=== PATIENT | male | born 1965 | race Two or more races ===

== ENCOUNTER 2021-06-08 19:40 | Inpatient (IN) | payer MEDICAID, OTHER ==
[~2021-06-08] VITALS: Ht 170.2 cm; Wt 183.0 kg
[2021-06-08] MEDS ORDERED: SODIUM CHLORIDE 0.9% 1,000 ML IV ONE (23:15)
[2021-06-08 23:41] LABS: Basophils # (auto) 0 10 ^3/uL (0-0.2); Eosinophils # (auto) 0 10 ^3/uL (0-0.8); Hemoglobin 12.7 g/dL (13.5-17.5); Lymphocytes # (auto) 0.5 10 ^3/uL (0.4-5.4); Monocytes # (auto) 0.4 10 ^3/uL (0-1.3); White Blood Cell 3.3 10^3/uL (4.4-10.8)
[2021-06-08 23:43] LABS: Basophils % (auto) 0.4 % (0.0-2.0); Hematocrit 36.1 % (41.0-53.0); Lymphocytes % (auto) 15.7 % (10.0-50.0); Mean Corpuscular Hgb Conc. 35.2 g/dL (32.0-36.0); Mean Corpuscular Volume 93.6 fL (80.0-100.0); Neutrophils # (auto) 2.4 10 ^3/uL (1.6-8.6); Neutrophils % (auto) 71.9 % (37.0-80.0); Nucleated Red Blood Cells % 0.1 %; Red Blood Cells 3.86 10^6/uL (4.5-5.90); Red Cell Distribution Width 14.7 % (11.8-14.3)
[2021-06-09 00:03] LABS: Albumin 3.5 g/dL (3.4-5.0); BUN/Creatinine Ratio 7.8; Calcium 8.3 mg/dL (8.5-10.1); Potassium 3.5 mmol/L (3.5-5.1)
[2021-06-09 00:05] LABS: Lactic Acid w/Reflex 2.8 mmol/L (0.4-2.0)
[2021-06-09 00:06] LABS: Total Protein 6.6 g/dL (6.4-8.2)
[2021-06-09] MEDS ORDERED: ONDANSETRON HCL 4 MG/2 ML VIAL IV ONE ×2 (00:30→16:30)
[2021-06-09] MEDS ORDERED: MORPHINE SULFATE 4 MG/ML SYR/VIAL IV ONE (00:30)
[2021-06-09] MEDS ORDERED: IOHEXOL 300 MG/ML 100ML BOTTLE IJ ONE (00:32)
[2021-06-09] MEDS ORDERED: diphenhdrAMINE HCL 50 MG/1 ML VL IV ONE (06:45)
[2021-06-09] MEDS ORDERED: METOCLOPRAMIDE HCL 5MG/ml INJ 2ml VIAL IV ONE (06:45)
[2021-06-09] MEDS ORDERED: KETOROLAC TROMETH 30 MG/ML 1ML VIAL IV ONE (06:45)
[2021-06-09] MEDS ORDERED: HYDROcodone-ACET 5/325MG TAB PO ONE (09:45)
[2021-06-09 11:38] LABS: Urine Amorphous Crystal FEW /hpf (None Seen); Urine Bacteria NONE SEEN /hpf (None Seen); Urine Blood Negative /uL (Negative); Urine Budding Yeast OCCASIONAL /hpf (None Seen); Urine Hyaline Cast FEW /lpf (0 - 2); Urine Mucus FEW (None Seen); Urine WBC 25 /hpf (0 - 3)
[2021-06-09 11:44] LABS: Alcohol, Urine < 3.0 mg/dL (0-10); Amphetamine Screen, Urine NEGATIVE (NEGATIVE); Barbiturate Scree,Urine NEGATIVE (NEGATIVE); Benzodiazephine Screen, Urine POSITIVE (NEGATIVE); Cannabinoid Screen, Urine NEGATIVE (NEGATIVE); Cocaine Screen, Urine NEGATIVE (NEGATIVE); Opiate Scree,Urine POSITIVE (NEGATIVE)
[2021-06-09 11:51] LABS: Phencyclidine Screen, Urine NEGATIVE (NEGATIVE)
[2021-06-09] MEDS ORDERED: FOLIC ACID 1 MG, MULTIPLE VITAMIN 10 ML, MAGNESIUM SULF SDV 50% 8 MEQ, THIAMINE INJ 100... INJ ONE ×5 (12:00)
[2021-06-09] MEDS ORDERED: MORPHINE SULFATE INJECTION 2 MG/ML SYRG IV ONE (16:30)
[2021-06-09] MEDS ORDERED: NITROGLYCERIN 0.4 MG SL TAB SL PRN (16:45)
[2021-06-09] MEDS ORDERED: MORPHINE SULFATE INJECTION 2 MG/ML SYRG IV PRN ×2 (16:45→18:00)
[2021-06-09] MEDS ORDERED: SODIUM CHLORIDE 0.9% 1,000 ML IV SCH (18:00)
[2021-06-09] MEDS ORDERED: ONDANSETRON HCL 4 MG/2 ML VIAL IV PRN (18:00)
[2021-06-09] MEDS ORDERED: LORazepam 0.5 MG TAB PO PRN (18:00)
[2021-06-09] MEDS ORDERED: cefTRIAXone 1GM/50ML D5W 50 ML IV ONE (18:00)
[2021-06-09] MEDS ORDERED: THIAMINE 100mg/ml INJ (200mg/2ml VIAL) IV ONE (18:00)
[2021-06-09] MEDS ORDERED: FOLIC ACID 1 MG TAB PO ONE (18:00)
[2021-06-09] MEDS ORDERED: MULTIPLE VITAMINS W/ MINERALS TAB PO ONE (18:00)
[2021-06-09] MEDS ORDERED: PANTOPRAZOLE 40 MG/10 ML VIAL INJ IV ONE (18:00)
[2021-06-09] MEDS ORDERED: DOCUSATE SOD 100 MG CAP PO PRN (18:00)
[2021-06-09] MEDS ORDERED: LORazepam 2MG/ML-1ML VIAL IV PRN (18:00)
[2021-06-09] MEDS ORDERED: TAMSULOSIN HYDROCHLORIDE 0.4 MG CAP PO ONE (18:15)
[2021-06-09] MEDS: chlordiazePOXIDE HCL 25 MG CAP PO SCH (18:54)
[2021-06-09 20:06] LABS: Phosphorus 2.9 mg/dL (2.5-4.90)
[2021-06-09 20:11] LABS: INR 1.16 (0.9-1.15); Partial Thromboplastin Time 26.2 sec (23.6-33.0)
[2021-06-09] MEDS ORDERED: ATORVASTATIN 20 MG TAB PO SCH (22:00)
[2021-06-09] MEDS ORDERED: ATOR40TA52 PO (22:18)
[2021-06-09] MEDS ORDERED: LISI40TA11 PO (22:18)
[2021-06-09] MEDS ORDERED: METO25TA93 PO (22:18)
[2021-06-09] MEDS ORDERED: TERA10CA36 PO (22:18)
[2021-06-09] MEDS ORDERED: AMLO-483 PO (22:18)
[2021-06-09] MEDS ORDERED: ESCI5TAB33 PO (22:18)
[2021-06-09] MEDS ORDERED: ASPI-325 PO (22:18)
[2021-06-09] MEDS ORDERED: ASPI1TAB19 PO (22:21)
[2021-06-09] MEDS ORDERED: TICA90TA PO (22:21)
[2021-06-09 22:34] VITALS: BP 125/75
[2021-06-10] MEDS: chlordiazePOXIDE HCL 25 MG CAP PO SCH ×2 (01:30→10:44)
[2021-06-10 04:46] LABS: Basophils # (auto) 0 10 ^3/uL (0-0.2); Basophils % (auto) 0.5 % (0.0-2.0); Eosinophils # (auto) 0 10 ^3/uL (0-0.8); Hemoglobin 12.6 g/dL (13.5-17.5); Lymphocytes % (auto) 31.7 % (10.0-50.0); Mean Corpuscular Hemoglobin 33.3 pg (28.0-32.0); Mean Corpuscular Hgb Conc. 35.1 g/dL (32.0-36.0); Mean Corpuscular Volume 94.8 fL (80.0-100.0); Monocytes # (auto) 0.4 10 ^3/uL (0-1.3); Monocytes % (auto) 11.9 % (0.0-12.0); Neutrophils # (auto) 1.7 10 ^3/uL (1.6-8.6); Neutrophils % (auto) 54.9 % (37.0-80.0); Nucleated Red Blood Cells % 0.1 %; White Blood Cell 3.1 10^3/uL (4.4-10.8)
[2021-06-10 04:57] LABS: INR 1.13 (0.9-1.15); Partial Thromboplastin Time 26.5 sec (23.6-33.0)
[2021-06-10 05:00] LABS: Albumin 3.1 g/dL (3.4-5.0); Calcium 8.6 mg/dL (8.5-10.1); Magnesium 1.6 mg/dL (1.6-2.6); Potassium 3.3 mmol/L (3.5-5.1)
[2021-06-10 05:05] LABS: BUN/Creatinine Ratio 7.4; Bilirubin, Total 1.6 mg/dL (0.2-1.0); CRP High Sensitivity 0.32 mg/dL (< 0.3); Phosphorus 3.6 mg/dL (2.5-4.90); Total Protein 6.2 g/dL (6.4-8.2)
[2021-06-10 05:44] VITALS: BP 143/88
[2021-06-10 09:00] VITALS: BP 143/97
[2021-06-10] MEDS ORDERED: cefTRIAXone 1GM/50ML D5W 50 ML IV SCH (09:00)
[2021-06-10] MEDS ORDERED: ENOXAPARIN SOD 40 MG/0.4 ML SYRINGE SC SCH (10:00)
[2021-06-10] MEDS ORDERED: PANTOPRAZOLE 40 MG/10 ML VIAL INJ IV SCH (10:00)
[2021-06-10] MEDS ORDERED: MULTIPLE VITAMINS W/ MINERALS TAB PO SCH (10:00)
[2021-06-10] MEDS ORDERED: chlordiazePOXIDE HCL 25 MG CAP PO SCH (10:00)
[2021-06-10] MEDS ORDERED: THIAMINE HCL 100 MG TAB PO SCH (10:00)
[2021-06-10] MEDS ORDERED: ASPirin 81 mg TAB PO SCH (10:00)
[2021-06-10] MEDS ORDERED: FOLIC ACID 1 MG TAB PO SCH (10:00)
[2021-06-10 13:00] VITALS: BP 137/85
[2021-06-10] MEDS ORDERED: LORA1TAB23 PO (15:45)
[2021-06-10 17:00] VITALS: BP 123/81
[2021-06-10] MEDS ORDERED: TERAZOSIN HCL 5 MG CAP PO SCH (22:00)
[2021-06-10] MEDS ORDERED: TICAGRELOR 90 MG TAB PO SCH (22:00)
[2021-06-11] MEDS ORDERED: chlordiazePOXIDE HCL 25 MG CAP PO SCH (10:00)
[2021-06-12] MEDS ORDERED: chlordiazePOXIDE HCL 25 MG CAP PO SCH (07:00)
== END 2021-06-10 18:07 | disposition home or self-care (01) | DRG 280 ==
LOC: ER 19:47 → OVERFLOW 06-09 16:38 → WEST WING 06-09 21:26
PROVIDERS: ADMIT Hospitalist; ATTEND Internal Medicine
DX: K70.9 Alcoholic liver disease, unspecified (principal); K70.10 Alcoholic hepatitis without ascites; K85.20 Alcohol induced acute pancreatitis without necrosis or infection; I42.6 Alcoholic cardiomyopathy; Z68.44 Body mass index [BMI] 60.0-69.9, adult; E66.01 Morbid (severe) obesity due to excess calories; K76.0 Fatty (change of) liver, not elsewhere classified; K29.00 Acute gastritis without bleeding; I25.10 Atherosclerotic heart disease of native coronary artery without angina pectoris; I10 Essential (primary) hypertension; F10.239 Alcohol dependence with withdrawal, unspecified; E78.5 Hyperlipidemia, unspecified; N40.0 Benign prostatic hyperplasia without lower urinary tract symptoms; Z79.02 Long term (current) use of antithrombotics/antiplatelets; Z79.899 Other long term (current) drug therapy; Y90.9 Presence of alcohol in blood, level not specified
CPT/HCPCS: 36415; 70450; 71045; 74177; 80053; 80061; 80307; 80320; 81001; 82550; 82607; 82728; 82746; 83036; 83605; 83615; 83690; 83735; 83880; 84100; 84443; 84484; 85025; 85379; 85610; 85652; 85730; 86141; 87040; 87086; 96361; 96374; 96375; C9113; G0378; J0696; J1885; J2405